=== PATIENT | male | born 1940 | race Native Hawaiian/Other Pacific Islander ===

== ENCOUNTER 2019-11-29 19:46 | Emergency (ER) | payer OTHER ==
[~2019-11-29] VITALS: Ht 188 cm; Wt 111.1 kg
[2019-11-29 20:34] LABS: PLATELET COUNT 224 K/uL (142-355)
[2019-11-29 20:45] VITALS: BP 121/60; TEMP 98.1
[2019-11-29 20:53] LABS: POTASSIUM 4.8 mmol/L (3.6-5.2)
[2019-11-29] MEDS ORDERED: ASPIRIN 81 LOW81 MG PO (22:44)
[2019-11-29] MEDS ORDERED: ATEN50TA36 PO (22:45)
[2019-11-29] MEDS ORDERED: DONEPEZIL HYDROC5 M1 PO (22:46)
[2019-11-29] MEDS ORDERED: CLON1TAB18 PO (22:46)
[2019-11-29] MEDS ORDERED: [UNRECOGNIZED DRUG - OTHER] PO (22:48)
[2019-11-29] MEDS ORDERED: DUTASTERIDE PO (22:48)
[2019-11-29] MEDS ORDERED: SERTRALINE HYD100 MG PO (22:49)
[2019-11-29] MEDS ORDERED: TRAZ100T PO (22:50)
[2019-11-29] MEDS ORDERED: FLUC150T PO (22:50)
[2019-11-29] MEDS ORDERED: REVATIO20 MG PO (22:54)
== END 2019-11-29 20:45 | disposition other institution (70) ==
LOC: ED 19:46
PROVIDERS: Family Medicine
DX: F03.91 Unspecified dementia, unspecified severity, with behavioral disturbance (principal); I48.91 Unspecified atrial fibrillation; I45.19 Other right bundle-branch block; Z04.6 Encounter for general psychiatric examination, requested by authority
CPT/HCPCS: 36415; 80053; 81000; 85027; 93005; 99283